=== PATIENT | female | born 1985 | race Caucasian/White ===

== ENCOUNTER 2017-07-08 18:11 | Emergency (ER) | payer OTHER ==
[2017-07-08 20:26] LABS: ABS Basophils 0.1 10^3/ul (0-0.2); ABS Eosinophils 0.1 10^3/ul (0-0.6); ABS Lymphocytes 1.9 10^3/ul (1.0-4.8); ABS Neutrophils 13.2 10^3/ul (1.5-7.7); ABS Nucleated RBC 0 10^3/ul; Eosinophil % 0.8 % (0-6); Hematocrit 41 % (35-47); Hemoglobin 14.1 g/dl (12.0-16.0); Lymphocyte % 11.8 % (25-47); Mean Corpuscular HGB Conc 34 g/dl (31-36); Mean Corpuscular Hemoglobin 30 pg (27-31); Mean Corpuscular Volume 87 fL (80-97); Mean Platelet Volume 9 um3 (7.4-10.4); Nucleated Red Blood Cells % 0; Platelet Count 384 10^3/ul (150-450); Red Blood Count 4.68 10^6/ul (4.0-5.4); Red Cell Distribution Width 14 % (10.5-15); White Blood Count 16.4 10^3/ul (3.5-10.8)
[2017-07-08 20:29] LABS: Urine Appearance Cloudy; Urine Blood Negative (Negative); Urine Color Yellow; Urine Ketones Trace (Negative); Urine Protein 2+(100 mg/dL) (Negative); Urine Specific Gravity 1.016 (1.010-1.030); Urine Urobilinogen Negative (Negative)
[2017-07-08 20:40] LABS: EGFR Non-African American 86.7 (>60)
--- NOTE | 2017-07-08 22:20 | ED ---
Barbara Boland Julia, scribed for Son Nielsen MD on 07/08/17 at 202 . Psychiatric Complaint - HPI Summary HPI Summary: This patient is a 31 year old F presenting to [facility] accompanied by her father with a chief complaint of severe depression. Patient reports this is the worst depression she has experienced due to recent stress and divorce. 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 Patient denies SI or HI. - History Of Current Complaint Chief Complaint: EDMentalHealth Time Seen by Provider: 07/08/17 19:20 Hx Obtained From: Patient Hx Last Menstrual Period: 3 weeks ago Timing: Constant Character: Depressed Aggravating Factor(s): Recent Stress Has Suicidal: Denies: Thoughts Has Homicidal: Denies: Thoughts - Allergies/Home Medications Allergies/Adverse Reactions: Allergies Allergy/AdvReac Type Severity Reaction Status Date / Time Aspirin Allergy Bleeding Verified 10/08/14 09:48 Codeine Allergy Vomiting Verified 07/17/15 16:57 Hydrocodone Allergy Vomiting Verified 07/17/15 16:57 Ibuprofen Allergy Bleeding Verified 10/08/14 09:48 BLOOD THINNERS Allergy Bleeding Uncoded 05/23/14 11:22 PMH/Surg Hx/FS Hx/Imm Hx Musculoskeletal History: Reports: Other Musculoskeletal History - Fibromyalgia Sensory History: Denies: Hx Legally Blind EENT History: Denies: Hx Deafness - Cancer History Hx Chemotherapy: No Hx Radiation Therapy: No Infectious Disease History: No Infectious Disease History: Denies: History Other Infectious Disease, Traveled Outside the [place] in Last 30 Days - Family History Known Family History: Positive: Hypertension, Diabetes - Social History Alcohol Use: None Substance Use Type: Reports: None Substance Use Comment - Amount & Last Used: oxycodone Smoking Status (MU): Never Smoked Tobacco Review of Systems Negative: Fever Positive: Depressed, Other - negative - SI/HI All Other Systems Reviewed And Are Negative: Yes Physical Exam - Summary Physical Exam Summary: Appearance: The patient is well-nourished in no acute distress and in no acute pain. Skin: The skin is warm and dry and skin color reflects adequate perfusion. HEENT: The head is normocephalic and atraumatic. The pupils are equal and reactive. The conjunctivae are clear and without drainage. Nares are patent and without drainage. Mouth reveals moist mucous membranes and the throat is without erythema and exudate. The external ears are intact. The ear canals are patent and without drainage. The tympanic membranes are intact. Neck: the neck is supple with full range of motion and non-tender. There are no carotid bruits. There is no neck vein distension. Respiratory: Chest is non-tender. Lungs are clear to auscultation and breath sounds are symmetrical and equal. Cardiovascular: Heart is regular rate and rhythm. There is no murmur or rub auscultated. There is no peripheral edema and pulses are symmetrical and equal. Abdomen: The abdomen is soft and non-tender. There are normal bowel sounds heard in all four quadrants and there is no organomegaly palpated. Musculoskeletal: There is no back tenderness noted. Extremities are non-tender with full range of motion. There is good capillary refill. There is no peripheral edema or calf tenderness elicited. Neurological: Patient is alert and oriented to person, place and time. The patient has symmetrical motor strength in all four extremities. Cranial nerves are grossly intact. Deep tendon reflexes are symmetrical and equal in all four extremities. Psychiatric: The patient has an appropriate affect and does not exhibit any anxiety or depression. Triage Information Reviewed: Yes Vital Signs On Initial Exam: Initial Vitals Temp Pulse Resp BP Pulse Ox 98.9 F 105 17 139/87 97 07/08/17 18:15 07/08/17 18:15 07/08/17 18:15 07/08/17 18:15 07/08/17 18:15 Vital Signs Reviewed: Yes Diagnostics - Vital Signs Vital Signs Temp Pulse Resp BP Pulse Ox 07/08/17 18:15 98.9 F 105 17 139/87 97 - Laboratory Lab Results: Lab Results 07/08/17 07/08/17 07/08/17 Range/Units 18:50 18:50 18:50 WBC 16.4 H (3.5-10.8) 10^3/ul RBC 4.68 (4.0-5.4) 10^6/ul Hgb 14.1 (12.0-16.0) g/dl Hct 41 (35-47) % MCV 87 (80-97) fL MCH 30 (27-31) pg MCHC 34 (31-36) g/dl RDW 14 (10.5-15) % Plt Count 384 (150-450) 10^3/ul MPV 9 (7.4-10.4) um3 Neut % (Auto) 80.6 (38-83) % Lymph % (Auto) 11.8 L (25-47) % [place] % (Auto) 6.3 (1-9) % Eos % (Auto) 0.8 (0-6) % Baso % (Auto) 0.5 (0-2) % Absolute Neuts (auto) 13.2 H (1.5-7.7) 10^3/ul Absolute Lymphs (auto) 1.9 (1.0-4.8) 10^3/ul Absolute Monos (auto) 1.0 H (0-0.8) 10^3/ul Absolute Eos (auto) 0.1 (0-0.6) 10^3/ul Absolute Basos (auto) 0.1 (0-0.2) 10^3/ul Absolute Nucleated RBC 0 10^3/ul Nucleated RBC % 0 Sodium 135 (133-145) mmol/L Potassium 4.0 (3.5-5.0) mmol/L Chloride 100 L (101-111) mmol/L Carbon Dioxide 27 (22-32) mmol/L Anion Gap 8 (2-11) mmol/L BUN 11 (6-24) mg/dL Creatinine 0.78 (0.51-0.95) mg/dL Est GFR ( Amer) 111.5 (>60) Est GFR (Non-Af Amer) 86.7 (>60) BUN/Creatinine Ratio 14.1 (8-20) Glucose 95 (70-100) mg/dL Calcium 10.3 (8.6-10.3) mg/dL Total Bilirubin 0.50 (0.2-1.0) mg/dL AST 23 (13-39) U/L ALT 22 (7-52) U/L Alkaline Phosphatase 87 (34-104) U/L Total Protein 8.5 (6.4-8.9) g/dL Albumin 5.0 (3.2-5.2) g/dL Globulin 3.5 (2-4) g/dL Albumin/Globulin Ratio 1.4 (1-3) TSH 1.15 (0.34-5.60) mcIU/mL Beta HCG, Quant < 0.60 mIU/mL Urine Color Urine Appearance Urine pH (5-9) Ur Specific Coyle (1.010-1.030) Urine Protein (Negative) Urine Ketones (Negative) Urine Blood (Negative) Urine Nitrate (Negative) Urine Bilirubin (Negative) Urine Urobilinogen (Negative) Ur Leukocyte Esterase (Negative) Urine WBC (Auto) (Absent) Urine RBC (Auto) (Absent) Ur Squamous Epith Cells (Absent) Urine Bacteria (Absent) Granular Casts (Absent) Urine Glucose (Negative) Salicylates < 2.50 (<30) mg/dL Urine Opiates Screen None detected (None Detect) Acetaminophen < 15 mcg/mL Ur Barbiturates Screen None detected (None Detect) Ur Phencyclidine Scrn None detected (None Detect) Ur Amphetamines Screen None detected (None Detect) U Benzodiazepines Scrn None detected (None Detect) Urine Cocaine Screen None detected (None Detect) U Cannabinoids Screen None detected (None Detect) Serum Alcohol < 10 (<10) mg/dL 07/08/17 Range/Units 18:50 WBC (3.5-10.8) 10^3/ul RBC (4.0-5.4) 10^6/ul Hgb (12.0-16.0) g/dl Hct (35-47) % MCV (80-97) fL MCH (27-31) pg MCHC (31-36) g/dl RDW (10.5-15) % Plt Count (150-450) 10^3/ul MPV (7.4-10.4) um3 Neut % (Auto) (38-83) % Lymph % (Auto) (25-47) % [place] % (Auto) (1-9) % Eos % (Auto) (0-6) % Baso % (Auto) (0-2) % Absolute Neuts (auto) (1.5-7.7) 10^3/ul Absolute Lymphs (auto) (1.0-4.8) 10^3/ul Absolute Monos (auto) (0-0.8) 10^3/ul Absolute Eos (auto) (0-0.6) 10^3/ul Absolute Basos (auto) (0-0.2) 10^3/ul Absolute Nucleated RBC 10^3/ul Nucleated RBC % Sodium (133-145) mmol/L Potassium (3.5-5.0) mmol/L Chloride (101-111) mmol/L Carbon Dioxide (22-32) mmol/L Anion Gap (2-11) mmol/L BUN (6-24) mg/dL Creatinine (0.51-0.95) mg/dL Est GFR ( Amer) (>60) Est GFR (Non-Af Amer) (>60) BUN/Creatinine Ratio (8-20) Glucose (70-100) mg/dL Calcium (8.6-10.3) mg/dL Total Bilirubin (0.2-1.0) mg/dL AST (13-39) U/L ALT (7-52) U/L Alkaline Phosphatase (34-104) U/L Total Protein (6.4-8.9) g/dL Albumin (3.2-5.2) g/dL Globulin (2-4) g/dL Albumin/Globulin Ratio (1-3) TSH (0.34-5.60) mcIU/mL Beta HCG, Quant mIU/mL Urine Color Yellow Urine Appearance Cloudy Urine pH 7.0 (5-9) Ur Specific Coyle 1.016 (1.010-1.030) Urine Protein 2+(100 mg/dl) H (Negative) Urine Ketones Trace H (Negative) Urine Blood Negative (Negative) Urine Nitrate Negative (Negative) Urine Bilirubin Negative (Negative) Urine Urobilinogen Negative (Negative) Ur Leukocyte Esterase Negative (Negative) Urine WBC (Auto) Absent (Absent) Urine RBC (Auto) Absent (Absent) Ur Squamous Epith Cells Present H (Absent) Urine Bacteria Absent (Absent) Granular Casts Present H (Absent) Urine Glucose Negative (Negative) Salicylates (<30) mg/dL Urine Opiates Screen (None Detect) Acetaminophen mcg/mL Ur Barbiturates Screen (None Detect) Ur Phencyclidine Scrn (None Detect) Ur Amphetamines Screen (None Detect) U Benzodiazepines Scrn (None Detect) Urine Cocaine Screen (None Detect) U Cannabinoids Screen (None Detect) Serum Alcohol (<10) mg/dL Result Diagrams: 07/08/17 18:50 07/08/17 18:50 Lab Statement: Any lab studies that have been ordered have been reviewed, and results considered in the medical decision making process. Course/Dx - Course Course Of Treatment: Ms. Charles presents depressed and labile. She has no SI/HI. She has been medically cleared and is awaiting a MHE in the Flex [facility]. - Differential Dx/Clinical Impression Provider Diagnosis: Depression Discharge - Discharge Plan Condition: Stable Disposition: OTHER Discharge Disposition Comment: Signed out to Dr. Delacruz Referrals: Sunny PERDOMO,Jese Pastrana [Primary Care Provider] - The documentation as recorded by the Barbara lombardo Julia accurately reflects the service I personally performed and the decisions made by me, Son Nielsen MD.
--- NOTE | 2017-07-08 23:42 | ED ---
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 Reports no s/sx of infection tonight and appears well. CLAUDINE DE LA PAZ 23:41 07/08/2017 - Consult/PCP Time Called: 10:00 Course/Dx - Course Course Of Treatment: Ms. Charles presents depressed and labile. She has no SI/HI. She has been medically cleared and is awaiting a MHE in the Flex Unit. - Diagnoses Provider Diagnoses: Depression
[2017-07-09 01:32] VITALS: BP 0/0
== END 2017-07-09 01:32 ==
LOC: ED 18:11
DX: F32.9 Major depressive disorder, single episode, unspecified (principal); F43.9 Reaction to severe stress, unspecified
CPT/HCPCS: 36415; 80053; 80307; 80320; 80329; 81003; 81015; 84443; 84702; 85025; 99284; G0480

== ENCOUNTER 2018-04-02 15:52 | Emergency (ER) | payer OTHER ==
[2018-04-02 16:09] VITALS: BP 120/83
--- NOTE | 2018-04-02 16:13 | UC ---
Ear Complaint HPI - HPI Summary HPI Summary: 32 yo female presents with sinus pain, pressure, congestion for the last week that worsened 3 days ago. She has been taking OTC tylenol cold and flu with no relief. Denies fever, chills, sore throat, cough. 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 - History of Current Complaint Chief Complaint: UCRespiratory Stated Complaint: FEVER,EAR & PAIN,CONGESTION Time Seen by Provider: 04/02/18 16:13 Hx Obtained From: Patient Hx Last Menstrual Period: 03/02/18 Severity Initially: Mild Severity Currently: Mild Pain Intensity: 5 Pain Scale Used: 0-10 Numeric - Allergies/Home Medications Allergies/Adverse Reactions: Allergies Allergy/AdvReac Type Severity Reaction Status Date / Time aspirin Allergy Bleeding Verified 04/02/18 16:09 codeine Allergy Vomiting Verified 04/02/18 16:09 hydrocodone Allergy See Comment Verified 04/02/18 16:09 ibuprofen Allergy Bleeding Verified 04/02/18 16:09 BLOOD THINNERS Allergy Bleeding Uncoded 05/23/14 11:22 Home Medications: Home Medications Phenylephrine/Dm/Acetaminop/GG [Tylenol Cold-Flu Severe Caplet] 1 tab PO Q6HR PRN 04/02/18 [History Confirmed 04/02/18] PMH/Surg Hx/FS Hx/Imm Hx - Additional Past Medical History Additional PMH: ITP Splenectomy - Surgical History Surgical History: Yes Surgery Procedure, Year, and Place: spleen removed at age 6 - Family History Known Family History: Positive: Cardiac Disease, Hypertension, Diabetes, Other - POS: blood clots - Social History Occupation: Employed Full-time Lives: With Family Alcohol Use: None Substance Use Type: None Substance Use Comment - Amount & Last Used: oxycodone Smoking Status (MU): Never Smoked Tobacco Review of Systems Constitutional: Negative Skin: Negative Eyes: Negative ENT: Ear Ache, Nasal Discharge, Sinus Congestion, Sinus Pain/Tenderness Respiratory: Negative Cardiovascular: Negative Gastrointestinal: Negative Neurovascular: Negative Neurological: Negative Psychological: Negative All Other Systems Reviewed And Are Negative: Yes Physical Exam - Summary Physical Exam Summary: GENERAL: NAD. WDWN. No pain distress. SKIN: No rashes, sores, lesions, or open wounds. HEENT: Head: AT/NC Eyes: EOM intact. Conjunctiva clear without inflammation or discharge. Ears: Hearing grossly normal. TMs intact, no bulging, erythema, or edema. Nose: Nasal mucosa mildly swollen and erythematous with yellow/ clear discharge. TTP maxillary and frontal sinus. Throat: Posterior oropharynx without exudates, erythema, or tonsillar enlargement. Uvula midline. NECK: Supple. Nontender. No lymphadenopathy. CHEST: CTAB. No r/r/w. No accessory muscle use. Breathing comfortably and in no distress. CV: RRR. Without m/r/g. Pulses intact. NEURO: Alert. PSYCH: Age appropriate behavior. Triage Information Reviewed: Yes Vital Signs: Initial Vital Signs Temp 99.4 F 04/02/18 16:04 Pulse 81 04/02/18 16:04 Resp 16 04/02/18 16:04 BP 120/83 04/02/18 16:04 Pulse Ox 98 04/02/18 16:04 Vital Signs Reviewed: Yes Ear Complaint Course/Dx - Course Course Of Treatment: Sinusitis - Differential Dx/Diagnosis Provider Diagnoses: Sinusitis Discharge - Sign-Out/Discharge Documenting (check all that apply): Patient Departure All imaging exams completed and their final reports reviewed: No Studies - Discharge Plan Condition: Stable Disposition: HOME Prescriptions: Amoxicillin PO (*) [Amoxicillin 875 MG (*)] 875 mg PO BID #20 tab Patient Education Materials: Sinusitis (ED) Forms: *Work Release Referrals: Smitha Martinez [Primary Care Provider] - Additional Instructions: If you develop a fever, shortness of breath, chest pain, new or worsening symptoms - please call your PCP or go to the ED. - Billing Disposition and Condition Condition: STABLE Disposition: Home - Attestation Statements Provider Attestation: Per institutional requirements, I have reviewed the chart, however, I was not consulted specifically or made aware of this patient by the midlevel provider. I did not personally evaluate, interact with , or disposition this patient.
== END 2018-04-02 16:30 | disposition home or self-care (01) ==
LOC: UCEAST 15:52
DX: J32.9 Chronic sinusitis, unspecified (principal); Z79.82 Long term (current) use of aspirin; Z88.5 Allergy status to narcotic agent; Z88.6 Allergy status to analgesic agent; Z88.8 Allergy status to other drugs, medicaments and biological substances
CPT/HCPCS: 99212; G0463

== ENCOUNTER 2018-07-13 12:43 | Emergency (ER) | payer OTHER ==
[2018-07-13 13:01] VITALS: BP 127/82
--- NOTE | 2018-07-13 13:25 | UC ---
Respiratory Complaint HPI - HPI Summary HPI Summary: one week of chest congestion and cough subjective fever for 1 day-no sob - History of Current Complaint Chief Complaint: UCRespiratory Stated Complaint: RESP COMPLAINT Time Seen by Provider: 07/13/18 13:17 Hx Obtained From: Patient Hx Last Menstrual Period: 06/30/18 ?: No Onset/Duration: Gradual Onset, Lasting Weeks - 1, Still Present, Worse Since - past 24 hours Timing: Constant Pain Intensity: 7 Pain Scale Used: 0-10 Numeric Character: Cough: Nonproductive Aggravating Factors: Nothing Alleviating Factors: Nothing Associated Signs And Symptoms: Positive: Fever, Pleuritic Chest Pain, URI - Allergies/Home Medications Allergies/Adverse Reactions: Allergies Allergy/AdvReac Type Severity Reaction Status Date / Time aspirin Allergy Bleeding Verified 07/13/18 13:02 codeine Allergy Vomiting Verified 07/13/18 13:02 hydrocodone Allergy See Comment Verified 07/13/18 13:02 ibuprofen Allergy Bleeding Verified 07/13/18 13:02 BLOOD THINNERS Allergy Intermediate Bleeding Uncoded 07/13/18 13:02 PMH/Surg Hx/FS Hx/Imm Hx Previously Healthy: No - itp - Surgical History Surgical History: Yes Surgery Procedure, Year, and Place: spleen removed at age 6. tonsils as a teen - Family History Known Family History: Positive: Cardiac Disease, Hypertension, Diabetes, Other - POS: blood clots - Social History Occupation: Employed Full-time Lives: With Family Alcohol Use: None Substance Use Type: None Substance Use Comment - Amount & Last Used: oxycodone Smoking Status (MU): Never Smoked Tobacco Review of Systems All Other Systems Reviewed And Are Negative: Yes Constitutional: Positive: Fever, Chills Skin: Positive: Negative. Negative: Bruising Eyes: Positive: Negative ENT: Positive: Negative Respiratory: Positive: Cough Cardiovascular: Positive: Negative Gastrointestinal: Positive: Negative Genitourinary: Positive: Negative Motor: Positive: Negative Neurovascular: Positive: Negative Musculoskeletal: Positive: Negative Neurological: Positive: Negative Psychological: Positive: Negative Is Patient Immunocompromised?: No Physical Exam Triage Information Reviewed: Yes Appearance: Well-Appearing, No Pain Distress, Well-Nourished Vital Signs: Initial Vital Signs Temp 98.2 F 07/13/18 12:57 Pulse 69 07/13/18 12:57 Resp 18 07/13/18 12:57 BP 127/82 07/13/18 12:57 Pulse Ox 97 07/13/18 12:57 Vital Signs Reviewed: Yes Eye Exam: Normal Eyes: Positive: Conjunctiva Clear ENT Exam: Normal ENT: Positive: Normal ENT inspection, Hearing grossly normal, Pharynx normal, TMs normal, Uvula midline. Negative: Nasal congestion, Tonsillar swelling, Trismus, Muffled voice, Hoarse voice, Dental tenderness, Sinus tenderness Dental Exam: Normal Neck exam: Normal Neck: Positive: Supple, Nontender, No Lymphadenopathy Respiratory Exam: Normal Respiratory: Positive: Lungs clear, Normal breath sounds, No respiratory distress, No accessory muscle use, Other: - chest wall tenderness---lateral left side Cardiovascular Exam: Normal Cardiovascular: Positive: RRR, No Murmur, Pulses Normal, Brisk Capillary Refill Abdominal Exam: Normal Abdomen Description: Positive: Nontender, Soft Musculoskeletal Exam: Normal Musculoskeletal: Positive: Strength Intact, ROM Intact, No Edema Neurological Exam: Normal Neurological: Positive: Alert, Muscle Tone Normal Psychological Exam: Normal Skin Exam: Normal UC Diagnostic Evaluation - Laboratory O2 Sat by Pulse Oximetry: 97 Respiratory Course/Dx - Course Course Of Treatment: increase fluids, tylenol for pain, albuterol, robitussin and zithromax follow with pcp prn - Differential Dx/Diagnosis Provider Diagnosis: Bronchitis, History of ITP Discharge - Sign-Out/Discharge Documenting (check all that apply): Patient Departure All imaging exams completed and their final reports reviewed: No Studies - Discharge Plan Condition: Stable Disposition: HOME Prescriptions: Albuterol HFA INHALER* [Ventolin HFA Inhaler*] 2 puff INH Q4H PRN #1 mdi PRN Reason: Cough Azithromycin TAB* [Zithromax TAB (Z-TISHA) 250 mg #6 tabs] 2 tab PO .TODAY, THEN 1 DAILY #1 tisha Patient Education Materials: Antitussives (By mouth), Acute Cough (ED), Chest Wall Pain (ED) Referrals: Smitha Martinez [Primary Care Provider] - If Needed - Billing Disposition and Condition Condition: STABLE Disposition: Home - Attestation Statements Provider Attestation: I was available for consult. This patient was seen by the SILKE. The patient was not presented to, seen by, or examined by me. -Lanny
== END 2018-07-13 13:30 | disposition home or self-care (01) ==
LOC: UCEAST 12:43
DX: J40 Bronchitis, not specified as acute or chronic (principal); D69.3 Immune thrombocytopenic purpura; Z88.6 Allergy status to analgesic agent; Z88.5 Allergy status to narcotic agent; Z88.8 Allergy status to other drugs, medicaments and biological substances
CPT/HCPCS: 99212; G0463

== ENCOUNTER 2018-10-03 15:00 | Emergency (ER) | payer OTHER ==
[2018-10-03 15:12] VITALS: BP 110/60
--- NOTE | 2018-10-03 15:36 | UC ---
Lower Extremity/Ankle HPI - HPI Summary HPI Summary: 33-year-old female with history of opiate dependence and ITP presents after falling at 6 AM this morning. She states sustained injury to her left lower leg as she [place] bending her leg under her. She is able to walk on it but with some discomfort. It has been reddened and slightly swollen in the area of the br[place]. She denies any other injuries to include head injury. She has not had any bleeding. She is a nonsmoker. - History of Current Complaint Chief Complaint: UCLowerExtremity Stated Complaint: LEG INJURY Time Seen by Provider: 10/03/18 15:23 Hx Obtained From: Patient Hx Last Menstrual Period: 06/30/18 Pain Intensity: 8 - Allergies/Home Medications Allergies/Adverse Reactions: Allergies Allergy/AdvReac Type Severity Reaction Status Date / Time aspirin Allergy Bleeding Verified 10/03/18 15:13 codeine Allergy Vomiting Verified 10/03/18 15:13 hydrocodone Allergy See Comment Verified 10/03/18 15:13 ibuprofen Allergy Bleeding Verified 10/03/18 15:13 BLOOD THINNERS Allergy Intermediate Bleeding Uncoded 10/03/18 15:13 Home Medications: Home Medications NK [No Home Medications Reported] 10/03/18 [History Confirmed 10/03/18] PMH/Surg Hx/FS Hx/Imm Hx Endocrine History: Other - ITP's status post splenectomy - Surgical History Surgical History: Yes Surgery Procedure, Year, and Place: spleen removed at age 6. tonsils as a teen - Family History Known Family History: Positive: Cardiac Disease, Hypertension, Diabetes, Other - POS: blood clots - Social History Lives: With Family Alcohol Use: None Substance Use Type: None, Other - Recovering opiate addiction Substance Use Comment - Amount & Last Used: oxycodone Smoking Status (MU): Never Smoked Tobacco Review of Systems All Other Systems Reviewed And Are Negative: Yes Constitutional: Negative: Fever Respiratory: Positive: Negative Motor: Positive: Negative Neurovascular: Positive: Negative Musculoskeletal: Positive: Calf Tenderness, Decreased ROM, Edema. Negative: Arthralgia, Myalgia Physical Exam Triage Information Reviewed: Yes Appearance: Well-Appearing, No Pain Distress Vital Signs: Initial Vital Signs Temp 97.4 F 10/03/18 15:05 Pulse 77 10/03/18 15:05 Resp 18 10/03/18 15:05 BP 110/60 10/03/18 15:05 Pulse Ox 97 10/03/18 15:05 Vital Signs Reviewed: Yes Eyes: Positive: Conjunctiva Clear ENT: Positive: Hearing grossly normal Neck: Positive: Supple Respiratory: Positive: Lungs clear Cardiovascular: Positive: RRR Abdomen Description: Positive: Nontender Musculoskeletal: Positive: Other: - Tender with mild redness in the left lateral mid calf without breaks in the skin, and noticeable edema or ecchymosis. Able to weight-bear and walk with discomfort. Neurological: Positive: Alert Psychological Exam: Normal Skin Exam: Other - Mild erythema in the area of injury Diagnostics - Radiology left leg Radiology Interpretation Completed By: Radiologist - No acute fracture Lower Extremity Course/Dx - Course Course Of Treatment: Nurse's notes reviewed. X-rays negative. Treat with topical lidocaine and Valdo wrap. Unable to take opiates. - Differential Dx/Diagnosis Differential Diagnosis/HQI/PQRI: Contusion, Fracture (Closed), Other - Hematoma Provider Diagnosis: Contusion of left lower leg Discharge - Sign-Out/Discharge Documenting (check all that apply): Patient Departure All imaging exams completed and their final reports reviewed: Yes - Discharge Plan Condition: Improved Disposition: HOME Patient Education Materials: Contusion in Adults (ED) Referrals: Smitha Martinez [Primary Care Provider] - Additional Instructions: [id number] lidocaine patches can be used in the area of discomfort. They are marketed under that name [place]. Ice to the area, Valdo wrap for comfort. Tylenol as needed for any other pain. Follow-up with primary care doctor. Return if worse or other concerns. - Billing Disposition and Condition Condition: IMPROVED Disposition: Home
== END 2018-10-03 15:50 | disposition home or self-care (01) ==
LOC: UCEAST 15:00
DX: S80.12XA Contusion of left lower leg, initial encounter (principal); W10.9XXA Fall (on) (from) unspecified stairs and steps, initial encounter; Y93.9 Activity, unspecified; Y92.019 Unspecified place in single-family (private) house as the place of occurrence of the external cause
CPT/HCPCS: 99212; G0463